=== PATIENT | female | born 1935 | race Hispanic/Latino ===

== ENCOUNTER 2019-03-18 07:58 | Day surgery (SDC) | payer MEDICARE ==
[2019-03-18] VITALS (17 sets, daily range): BP systolic 96–133; BP diastolic 52–74
[~2019-03-18 07:58] MED LIST: SODIUM CHLORIDE 0.9% 1000ML 1,000 ML IV ONE
[2019-03-18] MEDS ORDERED: IOHEXOL-350 50ML VIAL IV ONE (08:24)
[2019-03-18] MEDS ORDERED: ACET325C3 PO (09:06)
[2019-03-18] MEDS ORDERED: FLUO10CA21 PO (09:06)
[2019-03-18] MEDS ORDERED: BALS60OI TP (09:06)
[2019-03-18] MEDS ORDERED: LACT10PA5 PO (09:06)
[2019-03-18] MEDS ORDERED: TORS10TA18 PO (09:06)
[2019-03-18] MEDS ORDERED: DEXT1DRO OP (09:06)
[2019-03-18] MEDS ORDERED: DONE10TA8 PO (09:06)
[2019-03-18] MEDS ORDERED: CARB-101 PO (09:06)
[2019-03-18] MEDS ORDERED: OMEP40CA37 PO (09:06)
[2019-03-18] MEDS ORDERED: IPRATROPIUM (09:06)
[2019-03-18] MEDS ORDERED: POTA40LI17 PO (09:06)
[2019-03-18] MEDS ORDERED: TRAM50TA4 PO (09:06)
[2019-03-18] MEDS ORDERED: DIGO125T87 PO (09:06)
[2019-03-18] MEDS ORDERED: ATOR10 PO (09:06)
[2019-03-18] MEDS ORDERED: BUDE0.5A3 IH (09:06)
[2019-03-18] MEDS ORDERED: ALEN70TA10 PO (09:06)
[2019-03-18] MEDS ORDERED: GUAI100S13 PO (09:06)
== END 2019-03-18 12:00 | disposition home or self-care (01) ==
LOC: ENDO 07:58 → DAH 07:58 → ENDO 12:00
PROVIDERS: ATTEND Internal Medicine Gastroenterology
DX: Z46.59 Encounter for fitting and adjustment of other gastrointestinal appliance and device (principal); K80.50 Calculus of bile duct without cholangitis or cholecystitis without obstruction; K83.8 Other specified diseases of biliary tract; I11.0 Hypertensive heart disease with heart failure; I50.9 Heart failure, unspecified; G20 Parkinson's disease; E03.9 Hypothyroidism, unspecified; F03.90 Unspecified dementia, unspecified severity, without behavioral disturbance, psychotic disturbance, mood disturbance, and anxiety; F32.9 Major depressive disorder, single episode, unspecified; J44.9 Chronic obstructive pulmonary disease, unspecified; K21.9 Gastro-esophageal reflux disease without esophagitis; Z79.899 Other long term (current) drug therapy; Z98.890 Other specified postprocedural states; Z79.82 Long term (current) use of aspirin
CPT/HCPCS: 36415; 43262; 43264; 43275; 74328; A4606; C1769; C1773; J7030; Q9967; 74330